=== PATIENT | male | born 1955 | race Two or more races ===

== ENCOUNTER → 2024-07-12 | Outpatient (CLI) | payer MEDICARE | END | disposition home or self-care (01) | LOC: RADPV 09:11 | PROVIDERS: ATTEND Internal Medicine Cardiovascular Disease | DX: I70.203 Unspecified atherosclerosis of native arteries of extremities, bilateral legs (principal); I65.29 Occlusion and stenosis of unspecified carotid artery; M79.661 Pain in right lower leg; M79.662 Pain in left lower leg; R06.9 Unspecified abnormalities of breathing; I10 Essential (primary) hypertension | CPT/HCPCS: 93880; 93925; 93970 ==